=== PATIENT | female | born 2005 | race African-American/Black ===

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

== ENCOUNTER 2023-06-16 17:04 | Emergency (ER) | payer OTHER ==
--- NOTE | 2023-06-16 17:53 | ED ---
Female Urogenital HPI - General Chief complaint: Vaginal Bleeding Stated complaint: Adominal Pain/Preg Bleeding Time Seen by Provider: 06/16/23 17:47 Source: patient, RN notes reviewed Mode of arrival: ambulatory Limitations: no limitations - History of Present Illness Initial comments: Patient is a 17-year-old female presenting to the ER with chief complaint of vaginal bleeding. Patient is about 10 weeks . She states bleeding started about 30 minutes prior to arrival. She states bright red blood soaked her underwear. Patient has seen an DIRECTOR OF VOCATIONAL TRAINING out of [place]. States she is experiencing some abdominal cramping but nothing more than usual. Denies any fevers, chills, night sweats. - Related Data Previous Rx's Medication Instructions Recorded Cephalexin [Keflex] 250 mg PO Q6HR 10 Days day 04/08/17 Allergies Allergy/AdvReac Type Severity Reaction Status Date / Time No Known Allergies Allergy Verified 06/16/23 17:09 Review of Systems ROS Statement: Those systems with pertinent positive or pertinent negative responses have been documented in the HPI. ROS Other: All systems not noted in ROS Statement are negative. Past Medical History Past Medical History: No Reported History History of Any Multi-Drug Resistant Organisms: None Reported Additional Past Surgical History / Comment(s): open heart surgery at 15 days old Past Psychological History: No Psychological Hx Reported Past Alcohol Use History: None Reported Past Drug Use History: None Reported General Exam Limitations: no limitations General appearance: alert, in no apparent distress Head exam: Present: atraumatic, normocephalic, normal inspection Respiratory exam: Present: normal lung sounds bilaterally. Absent: respiratory distress, wheezes, rales, rhonchi, stridor Cardiovascular Exam: Present: regular rate, normal rhythm, normal heart sounds. Absent: systolic murmur, diastolic murmur, rubs, gallop, clicks GI/Abdominal exam: Present: soft, normal bowel sounds. Absent: distended, tenderness, guarding, rebound, rigid External exam: Present: normal external exam Speculum exam: Present: normal speculum exam, vaginal bleeding (Mild), other (cervical os closed) Neurological exam: Present: alert, oriented X3, CN II-XII intact Psychiatric exam: Present: normal affect, normal mood Skin exam: Present: warm, dry, intact, normal color. Absent: rash Course Vital Signs 02/06/16/23 06/16/23 17:06 18:22 19:19 Temperature 98.4 F 98.1 F Pulse Rate 60 66 62 Respiratory 18 16 18 Rate Blood Pressure 153/79 125/76 142/86 O2 Sat by Pulse 100 100 99 Oximetry 06/16/23 20:57 Temperature 98.6 F Pulse Rate 65 Respiratory 14 Rate Blood Pressure 119/87 O2 Sat by Pulse 99 Oximetry - Reevaluation(s) Reevaluation #1: 06/16/23 17:59 Pelvic exam chaperoned by Leeanne Rene RN Medical Decision Making - Medical Decision Making Was pt. sent in by a medical professional or institution (, PA, INTAKE MANAGER, urgent care, hospital, or long-term...) When possible be specific @ -No Did you speak to anyone other than the patient for history (EMS, parent, family, police, friend...)? What history was obtained from this source @ -No Did you review nursing and triage notes (agree or disagree)? Why? @ -I reviewed and agree with nursing and triage notes Were old charts reviewed (outside hosp., previous admission, EMS record, old EKG, old radiological studies, urgent care reports/EKG's, long-term records)? Report findings @ -No old charts were reviewed Differential Diagnosis (chest pain, altered mental status, abdominal pain women, abdominal pain men, vaginal bleeding, weakness, fever, dyspnea, syncope, headache, dizziness, GI bleed, back pain, seizure, CVA, palpatations, mental health, musculoskeletal)? @ -Differential Vaginal Bleeding: Spontaneous , threatened , molar , ectopic , bloody show, incompetent cervix, abruptio placenta, placenta previa, uterine rupture, dysfunctional uterine bleeding, hemorrhage, uterine fibroids, this is not meant to be an all- inclusive list. EKG interpreted by me (3pts min.). @ -None X-rays interpreted by me (1pt min.). @ -None done CT interpreted by me (1pt min.). @ -None done U/S interpreted by me (1pt. min.). @ -Trans abdominal ultrasound shows a single IUP gestational age 11 weeks 4 days. Heart rate 156 bpm. What testing was considered but not performed or refused? (CT, X-rays, U/S, labs)? Why? @ -None What meds were considered but not given or refused? Why? @ -None Did you discuss the management of the patient with other professionals (professionals i.e. , PA, INTAKE MANAGER, lab, RT, psych nurse, social professionals, truck repair supervisor, teacher, inshore undersea warfare officer, home health care case manager)? Give summary @ -No Was smoking cessation discussed for >3mins.? @ -No Was critical care preformed (if so, how long)? @ -No Were there social determinants of health that impacted care today? How? (Home lessness, low income, unemployed, alcoholism, drug addiction, transportation, low edu. Level, literacy, decrease access to med. care, fdc, rehab)? @ -No Was there de-escalation of care discussed even if they declined (Discuss DNR or withdrawal of care, Hospice)? DNR status @ -No What co-morbidities impacted this encounter? (DM, HTN, Smoking, COPD, CAD, Cancer, CVA, ARF, Chemo, Hep., AIDS, mental health diagnosis, sleep apnea, morbid obesity)? @ - Was patient admitted / discharged? Hospital course, mention meds given and route, prescriptions, significant lab abnormalities, going to OR and other pertinent info. @ -Discharge. Patient is a 17-year-old female presented to the ER with chief complaint of vaginal bleeding. Patient is estimating herself to be around 10 weeks . History and physical exam were completed. Vitals stable. Patient no signs of acute distress. No focal abdominal tenderness to palpation. Pelvic exam completed significant for minor cervical bleeding, os closed. Exam chaperoned by Leeanne Rene RN. Labs obtained significant for hemoglobin 12.4. Serum hCG 115,158. Urine without signs of infection. Ultrasound shows a single IUP gestational age of 11 weeks 4 days. Heart rate 156 bpm. Patient received RhoGAM prior to discharge due to A negative blood type. Results discussed with patient, all questions answered. Strict return parameters were discussed. Patient be discharged stable condition with follow-up to DIRECTOR OF VOCATIONAL TRAINING. Patient expressed understanding and agreement with care plan. Undiagnosed new problem with uncertain prognosis? @ -No Drug Therapy requiring intensive monitoring for toxicity (Heparin, Nitro, Insulin, Cardizem)? @ -No Were any procedures done? @ -No Diagnosis/symptom? @ -/vaginal bleeding Acute, or Chronic, or Acute on Chronic? @ -Acute Uncomplicated (without systemic symptoms) or Complicated (systemic symptoms)? @ -Uncomplicated Side effects of treatment? @ -No Exacerbation, Progression, or Severe Exacerbation? @ -No Poses a threat to life or bodily function? How? (Chest pain, USA, SC, pneumonia, PE, COPD, DKA, ARF, appy, cholecystitis, CVA, Diverticulitis, Homicidal, Suicidal, threat to staff... and all critical care pts) @ -No - Lab Data Result diagrams: 06/16/23 17:33 06/16/23 17:33 Lab Results 06/16/23 06/16/23 06/16/23 Range/Units 17:33 17:33 17:33 WBC 10.3 (4.0-11.0) k/uL RBC 4.20 (3.80-5.40) m/uL Hgb 12.4 (11.4-16.0) gm/dL Hct 35.8 (34.0-46.0) % MCV 85.3 (80.0-100.0) fL MCH 29.6 (25.0-35.0) pg MCHC 34.7 (31.0-37.0) g/dL RDW 13.3 (11.5-15.5) % Plt Count 195 (150-450) k/uL MPV 9.5 Neutrophils % 73 % Lymphocytes % 19 % Monocytes % 5 % Eosinophils % 3 % Basophils % 0 % Neutrophils # 7.5 (1.3-7.7) k/uL Lymphocytes # 1.9 (1.0-4.8) k/uL Monocytes # 0.5 (0-1.0) k/uL Eosinophils # 0.3 (0-0.7) k/uL Basophils # 0.0 (0-0.2) k/uL PT 9.9 L (10.0-12.5) sec INR 0.9 (<1.2) APTT 22.6 (22.0-30.0) sec Sodium 136 L (137-145) mmol/L Potassium 4.1 (3.5-5.1) mmol/L Chloride 107 (98-107) mmol/L Carbon Dioxide 22 (22-30) mmol/L Anion Gap 7 mmol/L BUN 7 (7-17) mg/dL Creatinine 0.47 L (0.52-1.04) mg/dL Est GFR (CKD-EPI)AfAm >90 (>60 ml/min/1.73 sqM) Est GFR (CKD-EPI)NonAf >90 (>60 ml/min/1.73 sqM) Glucose 85 (74-99) mg/dL Calcium 9.3 (8.4-10.2) mg/dL Total Bilirubin 0.3 (0.2-1.3) mg/dL AST 20 (14-36) U/L ALT 11 (4-34) U/L Alkaline Phosphatase 48 (38-126) U/L Total Protein 6.8 (6.3-8.2) g/dL Albumin 4.1 (3.5-5.0) g/dL HCG, Quant 889635.0 mIU/mL Urine Color Urine Appearance (Clear) Urine pH (5.0-8.0) Ur Specific [place] (1.001-1.035) Urine Protein (Negative) Urine Glucose (UA) (Negative) Urine Ketones (Negative) Urine Blood (Negative) Urine Nitrite (Negative) Urine Bilirubin (Negative) Urine Urobilinogen (<2.0) mg/dL Ur Leukocyte Esterase (Negative) Urine WBC (0-5) /hpf Ur Squamous Epith Cells (0-4) /hpf Urine Mucus (None) /hpf Blood Type Blood Type Recheck Bld Type Recheck Status Antibody Screen Antibody Identification Direct Antiglob Test 06/16/23 06/16/23 06/16/23 Range/Units 17:33 17:40 17:40 WBC (4.0-11.0) k/uL RBC (3.80-5.40) m/uL Hgb (11.4-16.0) gm/dL Hct (34.0-46.0) % MCV (80.0-100.0) fL MCH (25.0-35.0) pg MCHC (31.0-37.0) g/dL RDW (11.5-15.5) % Plt Count (150-450) k/uL MPV Neutrophils % % Lymphocytes % % Monocytes % % Eosinophils % % Basophils % % Neutrophils # (1.3-7.7) k/uL Lymphocytes # (1.0-4.8) k/uL Monocytes # (0-1.0) k/uL Eosinophils # (0-0.7) k/uL Basophils # (0-0.2) k/uL PT (10.0-12.5) sec INR (<1.2) APTT (22.0-30.0) sec Sodium (137-145) mmol/L Potassium (3.5-5.1) mmol/L Chloride (98-107) mmol/L Carbon Dioxide (22-30) mmol/L Anion Gap mmol/L BUN (7-17) mg/dL Creatinine (0.52-1.04) mg/dL Est GFR (CKD-EPI)AfAm (>60 ml/min/1.73 sqM) Est GFR (CKD-EPI)NonAf (>60 ml/min/1.73 sqM) Glucose (74-99) mg/dL Calcium (8.4-10.2) mg/dL Total Bilirubin (0.2-1.3) mg/dL AST (14-36) U/L ALT (4-34) U/L Alkaline Phosphatase (38-126) U/L Total Protein (6.3-8.2) g/dL Albumin (3.5-5.0) g/dL HCG, Quant mIU/mL Urine Color Colorless Urine Appearance Clear (Clear) Urine pH 7.0 (5.0-8.0) Ur Specific [place] 1.015 (1.001-1.035) Urine Protein Negative (Negative) Urine Glucose (UA) Negative (Negative) Urine Ketones Negative (Negative) Urine Blood Small H (Negative) Urine Nitrite Negative (Negative) Urine Bilirubin Negative (Negative) Urine Urobilinogen <2.0 (<2.0) mg/dL Ur Leukocyte Esterase Negative (Negative) Urine WBC <1 (0-5) /hpf Ur Squamous Epith Cells <1 (0-4) /hpf Urine Mucus Rare H (None) /hpf Blood Type A Negative Blood Type Recheck No Previous Record Bld Type Recheck Status [facility] ONLY Antibody Screen POSITIVE Antibody Identification Anti-D Direct Antiglob Test Negative - Radiology Data Radiology results: report reviewed, image reviewed Disposition Clinical Impression: Vaginal bleeding during Disposition: HOME SELF-CARE Instructions (If sedation given, give patient instructions): at 11 to 14 Weeks (ED) Additional Instructions: PLeae follow-up with DIRECTOR OF VOCATIONAL TRAINING in next 1-2 days. Return to ER for any new or worsening symptoms. Is patient prescribed a controlled substance at d/c from ED?: No Referrals: Bobby Ibrahim PAC [Primary Care Provider] - 1-2 days Jt Carbone MD [STAFF PHYSICIAN] - 1-2 days Time of Disposition: 19:41
[2023-06-16 17:54] LABS: Appearance,Urine Clear (Clear); Bilirubin,Urine Negative (Negative); Blood,Urine Small (Negative); Color,Urine Colorless; Glucose,Urine (UA) Negative (Negative); Ketones,Urine Negative (Negative); Leukocyte Esterase,Urine Negative (Negative); Mucus,Urine Rare /hpf; Nitrite,Urine Negative (Negative); Protein,Urine Negative (Negative); Specific Gravity,Urine 1.015 (1.001-1.035); Squamous Epithelial Cell,Urine <1 /hpf (0-4); Urobilinogen,Urine <2.0 mg/dL (<2.0); WBC,Urine <1 /hpf (0-5)
[2023-06-16 17:55] LABS: Basophils % (A) 0 %; Eosinophils # (A) 0.3 k/uL (0-0.7); Eosinophils % (A) 3 %; HCT 35.8 % (34.0-46.0); HGB 12.4 gm/dL (11.4-16.0); Lymphocytes # (A) 1.9 k/uL (1.0-4.8); Lymphocytes % (A) 19 %; MCH 29.6 pg (25.0-35.0); MCHC 34.7 g/dL (31.0-37.0); MCV 85.3 fL (80.0-100.0); Mean Platelet Volume 9.5; Monocytes # (A) 0.5 k/uL (0-1.0); Monocytes % (A) 5 %; Neutrophils # (A) 7.5 k/uL (1.3-7.7); Neutrophils % (A) 73 %; Platelet Count 195 k/uL (150-450); RDW 13.3 % (11.5-15.5); WBC 10.3 k/uL (4.0-11.0)
[2023-06-16 18:02] LABS: INR 0.9 (<1.2); Partial Thromboplastin Time 22.6 sec (22.0-30.0); Prothrombin Time 9.9 sec (10.0-12.5)
[2023-06-16 18:03] LABS: ALT 11 U/L (4-34); AST 20 U/L (14-36); African American GFR (CKD) >90 (>60 ml/min/1.73 sqM); Albumin 4.1 g/dL (3.5-5.0); Alkaline Phosphatase 48 U/L (38-126); Anion Gap 7 mmol/L; Blood Urea Nitrogen 7 mg/dL (7-17); Calcium 9.3 mg/dL (8.4-10.2); Carbon Dioxide 22 mmol/L (22-30); Chloride 107 mmol/L (98-107); Glucose 85 mg/dL (74-99); Non-African American GFR(CKD) >90 (>60 ml/min/1.73 sqM); Potassium 4.1 mmol/L (3.5-5.1); Sodium 136 mmol/L (137-145); Total Bilirubin 0.3 mg/dL (0.2-1.3); Total Protein 6.8 g/dL (6.3-8.2)
--- NOTE | 2023-06-16 18:34 | US ---
EXAMINATION TYPE: Transabdominal DATE OF EXAM: 06/16/2023 6:11 PM COMPARISON: NONE CLINICAL INDICATION: Female, 17 years old with history of vaginal bleeding 10 week gestation; light b leeding x 1.5 hours, EXAM PERFORMED: OBTA EXAM MEASUREMENTS: GESTATIONAL AGE / DATING Physician Established: (10 weeks/6 days) EDC: 01/06/2024 Dates by LMP: LMP unknown Dates by First Scan: No previous this is first scan Dates by Current Scan for: (11 weeks/4 days) EDC: 01/01/2024 MATERNAL ANATOMY Uterus: 11.8 x 9.5 x 8.7cm Right Ovary: 2.9 x 1.7 x 2.1cm Left Ovary: 3.4 x 2.1 x 3.5cm Post CDS / Adnexa: wnl Presence of free fluid: no Presence of corpus luteal cyst: left ovary = 1.7 x 1.5 x 1.8cm Presence of subchorionic bleed: no GESTATION / SURVEY CRL: 4.6cm (11 weeks/4 days) MSD: wnl Yolk Sac (normal less than 6mm): not seen Heart Rate: 156 bpm Rhythm: Normal IUP: Viable IUP Date of LMP: unknown Beta HcG (if available): not available IMPRESSION: Single live intrauterine with calculated ultrasound age of 11 weeks 4 days .
[2023-06-16 21:02] VITALS: BP 119/87; PULSE 65; RESP 14; TEMP 98.6
[2023-06-16] MEDS: Rhogam IMMUNE GLOBULIN 1,500 UNIT/1 ML IM ONE (21:14)
== END 2023-06-16 21:16 | disposition home or self-care (01) ==
LOC: EC 17:04
DX: O20.9 Hemorrhage in early pregnancy, unspecified (principal); Z3A.11 11 weeks gestation of pregnancy
CPT/HCPCS: 36415; 86900; 86901; 80053; 85025; 85610; 85730; 86850; 86870; 86880; 81001; 84702; 76801; 99284; 96372; J2790

== ENCOUNTER 2023-09-14 00:58 | Outpatient (CLI) | payer OTHER ==
[2023-09-14] MEDS: BETAMET ACET-BETAMETH SOD PHOS 6 MG/ML MDV IM SCH (01:32)
[2023-09-14] MEDS ORDERED: Rhogam IMMUNE GLOBULIN 1,500 UNIT/1 ML IM ONE (01:34)
[2023-09-14 01:43] LABS: Basophils % (A) 0 %; Eosinophils # (A) 0.3 k/uL (0-0.7); Eosinophils % (A) 3 %; HCT 31.2 % (34.0-46.0); HGB 10.1 gm/dL (11.4-16.0); Lymphocytes # (A) 1.5 k/uL (1.0-4.8); Lymphocytes % (A) 14 %; MCH 29.2 pg (25.0-35.0); MCHC 32.3 g/dL (31.0-37.0); MCV 90.4 fL (80.0-100.0); Mean Platelet Volume 8.8; Monocytes # (A) 0.7 k/uL (0-1.0); Monocytes % (A) 6 %; Neutrophils # (A) 8.3 k/uL (1.3-7.7); Neutrophils % (A) 76 %; Platelet Count 199 k/uL (150-450); RBC 3.45 m/uL (3.80-5.40); RDW 13.5 % (11.5-15.5); WBC 10.9 k/uL (4.0-11.0)
[2023-09-14] MEDS ORDERED: AMPICILLIN 2,000 MG in EMPTY SYRINGE 1 SYR IV ONE (02:14)
--- NOTE | 2023-09-14 02:14 | P.HPOB ---
History of Present Illness H&P Date: 09/14/23 Chief Complaint: Leakage of fluid, bleeding Ms. Nicholas is a 17 year old at 23 weeks and 5 days gestation with EDC of 01/06/2024 who presents to labor and delivery with leaking of fluid and vaginal bleeding that began approximately 1 hour ago. The patient is feeling movement and denies contractions. On recent anatomy US at 20 weeks and 3 days, the fetus was measuring in the 35%ile, fetus was in cephalic presentation, placenta was posterior without a previa, anatomy was normal, amniotic fluid was normal, and cervical length was normal. work-up: blood type A positive, antibody screen positive (s/p rhogam in first trimester for bleeding), rubella non-reactive, VDRL negative, HBsAg negative, HIV negative, HCV Ab negative, gonorrhea negative, chlamydia negative, NIPT negative. Past Medical History Past Medical History: No Reported History History of Any Multi-Drug Resistant Organisms: None Reported Additional Past Surgical History / Comment(s): open heart surgery at 15 days old Past Psychological History: No Psychological Hx Reported Past Alcohol Use History: None Reported Past Drug Use History: None Reported Medications and Allergies Home Medications Medication Instructions Recorded Confirmed Type Vit No.179/Iron/Folic 1 each PO 09/14/23 History [ Tablet] Allergies Allergy/AdvReac Type Severity Reaction Status Date / Time No Known Allergies Allergy Verified 09/14/23 01:15 Exam Focused physical exam is performed. This is a healthy-appearing in no apparent distress. Breathing is non-labored. Abdomen is gravid and non-tender. Sterile speculum exam is performed. Cervix is noted to be closed. Membranes are grossly ruptured and blood tinged. Extremities non-tender and non-edematous. heart tones are in the 140s and tocometer is not graphing contractions Results Result Diagrams: 09/14/23 01:25 Assessment and Plan Assessment: 17 year old at 23 weeks and 4 days with PPROM Plan: 1. PPROM. Will give first dose of betamethasone. Will give 6g bolus of magnesium sulfate. Will give Azithromycin 1g orally plus 2 grams IV Ampicillin now. GBS cx collected. Patient stable, no contractions, cervix closed on sterile speculum exam. Transfer to [facility] accepted by Dr. Ernestina Jessica.
[2023-09-14] MEDS ORDERED: CALCIUM GLUCONATE 1 GM/10 ML VIAL IV PRN (02:15)
[2023-09-14] MEDS: MAGNESIUM SULFATE GM 6 GM in SODIUM CHLORIDE 0.9% 100 ML IVPB ONE (02:25)
[2023-09-14] MEDS: AMPICILLIN 2,000 MG in SODIUM CHLORIDE 0.9% 100 ML IVPB ONE (02:26)
[2023-09-14] MEDS: AZITHROMYCIN 500 MG TAB PO STA (02:26)
[2023-09-14] MEDS: LACTATED RINGERS 1,000 ML IV ONE (02:26)
[2023-09-14 02:53] VITALS: RESP 16
[2023-09-14 03:44] VITALS: BP 127/73; PULSE 82; TEMP 99.8
--- NOTE | 2023-09-14 11:09 | P.MSEPDOC ---
Presenting Problems - Arrival Data Date of Arrival on Unit: 09/14/23 Time of Arrival on Unit: 00:58 Mode of Transport: EMS - Complaint OB-Reason for Admission/Chief Complaint: Rule Out PROM Comment: PROM at 0027 Medical History - Information : 1 Para: 0 Term: 0 : 0 Abortions: Spontaneous or Elective: 0 Number of Living Children: 0 - Gestational Age Gestational Age by GUZMAN (wks/days): 23 Weeks and 5 Days Review of Systems - Review of Systems Constitutional: No problems Breast: No problems ENT: No problems Cardiovascular: No problems Respiratory: No problems Gastrointestinal: No problems Genitourinary: No problems Musculoskeletal: No problems Neurological: No problems Skin: No problems Vital Signs - Temperature Temperature: 99.8 F Temperature Source: Temporal Artery Scan - Pulse Pulse Oximetery Pulse Rate: 82 Pulse Assessment Method: Automatic Cuff - Respirations Respiratory Rate: 16 Oxygen Delivery Method: Room Air O2 Sat by Pulse Oximetry: 98 - Blood Pressure Left Arm Blood Pressure: 127/73 Blood Pressure Mean: 91 Blood Pressure Source: Automatic Cuff Medical Screen Scoring - Cervical Exam Dilation (cm): 0 Membranes: Ruptured - Assessment - Baby A Baseline FHR: 150 Heart Rate - NICHD Category: Category II (Indeterminate) Physician Notification - Physician Notified Physician Notified Date: 09/14/23 Physician Notified Time: 01:00 Physician: Belem Hollis - Notification Comment Comment: 99- report given to Dr. Mcmahon by Andrade Nj RN- RN in room and called out to have Dr. Hollis come in the room. Dr. Hollis in room 0104 performing sterile speculum exam copious amounts of clear liquid present and bleeding. Dr. Hollis ordered [facility] IM, CBC, Type and Screen, rhogam. 0200- Lashonda Gil RN at bedside Dr. Hollis updated that transfer has been accepted. GBS ordered and performed by Dr. Hollis. Maternal Triage Index - Stat/Priority 1 Stat Priority 1: No - Urgent/Priority 2 Urgent Priority 2: Yes Provider Notified: Belem Hollis Provider Notified Time: 01:00 Criteria Met for Priority 2: Dr. Del Angel given report by Andrade Nj RN Disposition - Disposition OB Disposition: Transfer to other dept./facility Transferred to:: [facility] Discharge Date: 09/14/23 Discharge Time: 03:08 I agree with the RN Medical Screening Exam: Yes Case reviewed; plan agreed upon as documented in EMR&OBIX.: Yes Diagnosis: MATERNAL CARE FOR PROBLEM, UNSP, SECOND TRIMESTER, OTH
== END 2023-09-14 03:08 ==
LOC: FBPOP 00:58
PROVIDERS: ATTEND Obstetrics & Gynecology
DX: O47.02 False labor before 37 completed weeks of gestation, second trimester (principal); Z3A.23 23 weeks gestation of pregnancy
CPT/HCPCS: 99215; 96367; 36415; 86900; 86901; 85025; 87081; J0290; J3475; J0702; 86850